=== PATIENT | female | born 1995 | race Hispanic/Latino ===

== ENCOUNTER 2025-03-20 18:10 | Emergency (ER) | payer OTHER ==
[~2025-03-20] VITALS: Ht 154.9 cm; Wt 80.1 kg
[2025-03-20] MEDS ORDERED: VENTAER INH (18:23)
[2025-03-20] MEDS: AUGMENTIN 875 MG TAB PO ONE (19:49)
[2025-03-20] MEDS: TETANUS/DIPHTH/ACEL. PERTUSSIS 0.5 ML SYR IM ONE (19:50)
[2025-03-20] MEDS ORDERED: AMOX875T2 PO (19:51)
[2025-03-20 19:59] VITALS: BP 147/63; TEMP 97.4; O2SAT 100
== END 2025-03-20 20:00 | disposition home or self-care (01) ==
LOC: M ED 18:10
DX: S61.451A Open bite of right hand, initial encounter (principal); W55.01XA Bitten by cat, initial encounter; Y92.410 Unspecified street and highway as the place of occurrence of the external cause; Y93.9 Activity, unspecified; Y99.9 Unspecified external cause status; Z98.84 Bariatric surgery status; Z88.2 Allergy status to sulfonamides